=== PATIENT | female | born 1965 | race Caucasian/White ===

== ENCOUNTER 2016-07-22 10:45 | Emergency (ER) | payer OTHER ==
[~2016-07-22] VITALS: Ht 170.2 cm; Wt 106.6 kg
--- NOTE | ~2016-07-22 | EKG ---
[address] [address] ELECTROCARDIOGRAM REPORT Name: JJ RESTREPONE Room #: [facility]ENTERMargareth#: [id number] Admission: 07/22/16 Attend Phys: Discharge: 07/22/16 Date of : 65 Report #: [id number] THIS REPORT FOR: //name// [facility] ED Test Date: 2016-07-22 Test Time: 11:24:52 Pat Name: JJ RESTREPO Department: Room: Gender: F Computer Specialist: ELDON : 1965 Requested By: Viktoriya Martinez Order Number: [id number] MD: Alli Cerda Measurements Intervals Julian Rate: 106 P: 38 IN: 163 QRS: 9 QRSD: 96 T: 0 QT: 338 QTc: 449 Interpretive Statements Sinus tachycardia Borderline T abnormalities, inferior leads Compared to ECG 02/13/2012 19:27:02 T-wave abnormality now present Sinus rhythm no longer present Electronically Signed On 07-26-2016 8:17:00 CDT by Alli Cerda [email or web address] <ELECTRONICALLY SIGNED> By: Alli Cerda MD 07/26/16 0817 [id number] Alli Cerda MD /KARSON
[~2016-07-22 10:45] MED LIST: DILANTIN30 MG; LAMICTAL XR50 MG PO; LAMICTAL100 MG PO; MACROBID 100 M100 M2 PO; REVIA 50 MG TAB50 MG PO
[2016-07-22 11:51] LABS: HEMATOCRIT 42.7 % (37.0-47.0); HEMOGLOBIN 14.5 gm/dL (12.0-15.0); MCH 31.6 pg (26.0-34.0); MCHC 34.1 g/dL (28.0-37.0); MCV 92.8 fL (80.0-100.0); PLATELET COUNT 191 thou/uL (150-400); RBC 4.59 mil/uL (4.20-5.00); RDW 13.2 % (10.5-14.5); WBC 8.3 thou/uL (4.0-11.0)
[2016-07-22 11:54] LABS: MANUAL DIFF YES
[2016-07-22 12:01] LABS: ANION GAP 7 mmol/L (7-16); BUN 13 mg/dL (7-18); CALCIUM 8.8 mg/dL (8.5-10.1); CHLORIDE 108 mmol/L (98-107); CO2 23 mmol/L (21-32); CREATININE 0.8 mg/dL (0.6-1.0); GLUCOSE 124 mg/dL (74-106); POTASSIUM 3.7 mmol/L (3.5-5.1); SODIUM 138 mmol/L (136-145)
[2016-07-22 12:05] LABS: ALBUMIN 3.9 g/dL (3.4-5.0); ALKALINE PHOSPHATASE 116 U/L (46-116); SALICYLATE < 2.8 mg/dL (2.8-20.0); SGOT 15 U/L (15-37); SGPT 22 U/L (30-65); TOTAL BILIRUBIN 0.3 mg/dL (<0.1-1.0); TOTAL PROTEIN 7.3 g/dL (6.4-8.2)
[2016-07-22 12:23] LABS: ABSOLUTE NEUTROPHILS 7.6 thou/uL (1.4-8.2); PLATELET ESTIMATE NORMAL; TOTAL CELL COUNT 100
[2016-07-22 12:32] LABS: ACETAMINOPHEN < 2 ug/mL (10-30)
[2016-07-22 12:33] LABS: URINE BILIRUBIN NEGATIVE (Negative); URINE BLOOD NEGATIVE (Negative); URINE COLOR YELLOW; URINE GLUCOSE-RANDOM* NEGATIVE (Negative); URINE KETONES NEGATIVE (Negative); URINE NITRITE NEGATIVE (Negative); URINE PROTEIN (DIPSTICK) NEGATIVE (Negative); URINE SPECIFIC GRAVITY >= 1.030 (1.003-1.035); URINE UROBILINOGEN 0.2 E.U./dl (0.2-1.0)
[2016-07-22 12:40] LABS: AMP/METHAMP Negative (Negative); BARBITURATES Negative (Negative); BENZODIAZEPINES Negative (Negative); COCAINE Negative (Negative); METHADONE Negative (Negative); OPIATES POSITIVE (Negative); PCP POSITIVE (Negative); THC Negative (Negative)
[2016-07-22 14:32] VITALS: BP 130/80
== END 2016-07-22 14:33 | disposition home or self-care (01) ==
LOC: ER 10:45
PROVIDERS: Nurse Practitioner Family
DX: T48.5X1A Poisoning by other anti-common-cold drugs, accidental (unintentional), initial encounter (principal); Z90.89 Acquired absence of other organs; Z90.710 Acquired absence of both cervix and uterus; Z90.49 Acquired absence of other specified parts of digestive tract; Z88.1 Allergy status to other antibiotic agents; Z88.8 Allergy status to other drugs, medicaments and biological substances; Z87.891 Personal history of nicotine dependence; Y92.9 Unspecified place or not applicable